=== PATIENT | male | born 1935 ===

== ENCOUNTER → 2023-05-21 06:19 | Outpatient (CLI) | payer OTHER ==
[2023-05-21 07:12] LABS: INR 1.1; PARTIAL THROMBOPLASTIN TIME 23.1 SECONDS (22.0-34.0); PROTHROMBIN TIME 11.5 SECONDS (9.0-11.5)
[2023-05-21 10:38] LABS: HEMATOCRIT 46.2 % (39.0-48.0); HEMOGLOBIN 16.2 g/dL (13-16.00); MEAN CELL VOLUME 97.1 fL (80.0-100.00); PLATELET COUNT 207 K/uL (150-450); RED BLOOD COUNT 4.76 M/uL (4.00-6.00); RED CELL DISTRIBUTION WIDTH 12.4 % (11.5-14.5)
== END | disposition home or self-care (01) ==
LOC: LAB 06:19
PROVIDERS: ATTEND Surgery
DX: R19.4 Change in bowel habit (principal); Z80.0 Family history of malignant neoplasm of digestive organs; Z85.038 Personal history of other malignant neoplasm of large intestine; C18.9 Malignant neoplasm of colon, unspecified

== ENCOUNTER → 2023-05-23 | Day surgery (SDC) | payer OTHER ==
[~2023-05-23] MED LIST: DIPHENHYDRAMINE HCL 50 MG/ML VIAL 1ML IV ONE; MIDAZOLAM HCL 2 MG/2 ML VIAL IV ONE; fentaNYL CITRATE 50 MCG/ML AMPUL IV ONE
== END | disposition home or self-care (01) ==
LOC: ADM 05-21 14:00 → AMB-ENDOS 07:00
PROVIDERS: ATTEND Surgery
DX: D12.2 Benign neoplasm of ascending colon (principal); D12.0 Benign neoplasm of cecum; D12.3 Benign neoplasm of transverse colon; K57.30 Diverticulosis of large intestine without perforation or abscess without bleeding